=== PATIENT | female | born 1990 | race Caucasian/White ===

== ENCOUNTER 2023-04-13 13:41 | Outpatient (CLI) | payer BC, SELFPAY ==
--- NOTE | 2023-04-13 14:00 | CRLHL7_ITS ---
For Patients: As a result of the Cures Act, medical imaging exams and procedure reports are released immediately into your electronic medical record. You may view this report before your referring provider. If you have questions, please contact your health care provider. INDICATION: Dates and viability. LMP 02/09/2023. COMPARISON: None. TECHNIQUE: Real-time kaplan-scale imaging of the pelvis was performed. FINDINGS: Sonographic imaging demonstrates a single living intrauterine gestation. The embryo has a regular cardiac rate measuring 171 beats per minute. The embryo`s crown-rump length measurement of 2.1 cm corresponds to a gestational age of 8 weeks 5 days with a sonographic due date of 11/18/2023. There is a normal-appearing yolk sac. The placenta has not yet developed. There is a 2.3 x 0.9 x 2.2 cm subchorionic hemorrhage in the lower uterus. The right ovary measures 4.1 x 2.8 x 3.1 cm and the left ovary measures 3.6 x 1.6 x 1.4 cm. Corpus luteal cyst in the right ovary. No free fluid in the cul-de-sac. IMPRESSION: 1. Single living intrauterine gestation with crown rump length 2.1 cm which corresponds to a gestational age of 8 weeks 5 days with a sonographic due date of 11/18/2023. 2. The clinical gestational age by LMP is 9 weeks 0 days. 3. Subchorionic hemorrhage in the lower uterus. Dictated by Karyn Cotto MD @ 04/13/2023 10:39:30 PM (Electronically Signed)
== END 2023-04-13 13:42 | disposition home or self-care (01) ==
LOC: US 13:43
PROVIDERS: Visit Provider Advanced Practice Midwife
DX: Z34.91 Encounter for supervision of normal pregnancy, unspecified, first trimester (principal); O20.9 Hemorrhage in early pregnancy, unspecified; Z3A.09 9 weeks gestation of pregnancy
CPT/HCPCS: 76817; 84450; 84460; 86703; 86706; 86803; 86850; 86900; 86901; 87340

== ENCOUNTER 2023-04-13 15:09 | Outpatient (CLI) | payer BC, SELFPAY | END 2023-04-13 15:10 | disposition home or self-care (01) | PROVIDERS: Visit Provider Advanced Practice Midwife | DX: Z34.91 Encounter for supervision of normal pregnancy, unspecified, first trimester (principal) | CPT/HCPCS: 80306; 84450; 84460; 86592; 86703; 86704; 86706; 86762; 86787; 86803; 86850; 86900; 86901; 87086; 87340 ==

== ENCOUNTER 2023-04-14 15:35 | Outpatient (CLI) | payer BC, SELFPAY | END 2023-04-14 15:36 | disposition home or self-care (01) | PROVIDERS: Visit Provider Advanced Practice Midwife | DX: Z34.91 Encounter for supervision of normal pregnancy, unspecified, first trimester (principal) | CPT/HCPCS: 80306; 87086 ==

== ENCOUNTER 2023-04-21 10:46 | Outpatient (CLI) | payer BC, SELFPAY ==
--- NOTE | 2023-04-21 11:15 | CRLHL7_ITS ---
For Patients: As a result of the Cures Act, medical imaging exams and procedure reports are released immediately into your electronic medical record. You may view this report before your referring provider. If you have questions, please contact your health care provider. LEFT BREAT ULTRASOUND CLINICAL HISTORY: LEFT breast lump. COMPARISON: None. TECHNIQUE: Real-time ultrasound imaging of LEFT breast with imaging documentation. FINDINGS: Targeted sonogram to the area of concern at 2 o`clock 8 cm from the nipple performed. Normal dense fibroglandular tissue is present. No fibrocystic change or suspicious mass. IMPRESSION: Normal dense breast tissue LEFT breast 2 o`clock 8 cm from the nipple. RECOMMENDATIONS: Clinical follow-up. BI-RADS Category 1: Negative A lay language report of this examination will be provided to the patient. Dictated by Paramjit Rose MD @ 04/21/2023 11:38:17 AM /Dictated by: Paramjit Rose MD @ 04/21/2023 11:38:00 AM (Electronically Signed)
== END 2023-04-21 10:47 | disposition home or self-care (01) ==
LOC: US 10:47
PROVIDERS: Visit Provider Advanced Practice Midwife
DX: N63.21 Unspecified lump in the left breast, upper outer quadrant (principal)
CPT/HCPCS: 76642

== ENCOUNTER 2023-05-12 11:16 | Outpatient (CLI) | payer BC, SELFPAY | END 2023-05-12 11:17 | disposition home or self-care (01) | LOC: NFLDREF 05-16 06:55 | PROVIDERS: Visit Provider Advanced Practice Midwife | DX: Z34.82 Encounter for supervision of other normal pregnancy, second trimester (principal); O99.891 Other specified diseases and conditions complicating pregnancy; R74.01 Elevation of levels of liver transaminase levels | CPT/HCPCS: 84450; 84460 ==

== ENCOUNTER 2023-06-09 10:28 | Outpatient (CLI) | payer BC, SELFPAY | END 2023-06-09 10:29 | disposition home or self-care (01) | PROVIDERS: Visit Provider Advanced Practice Midwife | DX: Z34.82 Encounter for supervision of other normal pregnancy, second trimester (principal) | CPT/HCPCS: 81511 ==

== ENCOUNTER 2023-07-07 09:36 | Outpatient (CLI) | payer BC, SELFPAY ==
--- NOTE | 2023-07-07 09:45 | CRLHL7_ITS ---
For Patients: As a result of the Century Cures Act, medical imaging exams and procedure reports are released immediately into your electronic medical record. You may view this report before your referring provider. If you have questions, please contact your health care provider. INDICATION: Evaluate anatomy. COMPARISON: 04/13/2023 TECHNIQUE: Real time kaplan scale imaging of the fetus was performed as well as color Doppler analysis of the umbilical vessels. FINDINGS: Sonographic imaging demonstrates a single living intrauterine gestation. Fetus demonstrates a regular cardiac rate of 155 beats per minute. Fetus has a vertex position. The placenta lies posterior without evidence of placenta previa. The edge of the placenta is located 4.3 cm from the internal cervical os. Amniotic fluid volume appears normal. Single deepest vertical pocket: 4.6 cm. The cervix is closed and measures 4.0 cm in length. The composite ultrasound gestational age is calculated at 20 weeks 3 days with an estimated sonographic due date of 11/21/2023. The estimated weight is 369 grams which lies at the 22nd %. The following biometric measurements were obtained: Biparietal diameter: 4.7 cm/20 weeks 2 days 18th% Head circumference: 18.0 cm/20 weeks 3 days 14th% Abdominal circumference: 15.6 cm/20 weeks 5 days 31st% Femur length: 3.4 cm/20 weeks 5 days 24th% The HC/AC ratio measures: 1.15 range (1.07-1.25) On anatomic survey, there is a normal appearance of the cerebral ventricles, cavum septi pellucidi, cisterna magna and cerebellum. The nose, lips, and facial profile appear normal. The cervical, thoracic and lumbar spine are well visualized and appear normal. There is a normal four-chamber heart view and the left and right ventricular outflow tracts appear normal. The diaphragm and stomach appear normal. The kidneys and bladder also appear normal. There is a normal three-vessel cord and cord insertion site. The four extremities appear normal. IMPRESSION: Normal OB ultrasound exam with concordance of clinical and sonographic dating. No intrinsic abnormalities noted on anatomic survey. Dictated by Paramjit Rose MD @ 07/07/2023 11:38:33 AM (Electronically Signed)
== END 2023-07-07 09:37 | disposition home or self-care (01) ==
LOC: US 09:36
PROVIDERS: Visit Provider Advanced Practice Midwife
DX: Z34.92 Encounter for supervision of normal pregnancy, unspecified, second trimester (principal); Z3A.20 20 weeks gestation of pregnancy
CPT/HCPCS: 76805